=== PATIENT | female | born 2000 | race Hispanic/Latino ===

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

== ENCOUNTER 2021-07-02 13:29 | Emergency (ER) | payer SELFPAY ==
[~2021-07-02] VITALS: Ht 152.4 cm; Wt 81.6 kg
[~2021-07-02 13:29] MED LIST: IRON18 MG PO; NORTREL1 EAC2 PO; [UNRECOGNIZED DRUG - OTHER] PO
== END 2021-07-02 14:20 | disposition home or self-care (01) ==
LOC: ER 13:53
DX: N92.0 Excessive and frequent menstruation with regular cycle (principal)
CPT/HCPCS: 99282

== ENCOUNTER 2021-08-19 19:59 | Emergency (ER) | payer SELFPAY ==
[~2021-08-19] VITALS: Ht 152.4 cm; Wt 81.6 kg
[2021-08-19 20:40] LABS: BASOPHILS % 0.2 % (0.0-1.0); EOSINOPHILS # (AUTO) 0.3 (0.0-0.4); EOSINOPHILS % 1.8 % (0.0-6.0); HEMATOCRIT 34.6 % (34.2-44.1); HEMOGLOBIN 10.8 g/dL (12.0-16.0); LYMPHOCYTES # (AUTO) 2.2 (1.0-3.2); LYMPHOCYTES % 12.7 % (18.0-39.1); MEAN CORPUSCULAR HEMOGLOBIN 24.9 pg (28-32); MEAN CORPUSCULAR HGB CONC 31.2 g/dL (31-35); MEAN CORPUSCULAR VOLUME 79.9 fL (81-99); MONOCYTES % 5.7 % (4.4-11.3); NEUTROPHILS # (AUTO) 13.4 (2.1-6.9); PLATELET COUNT 470 x10e3/uL (140-360); RED BLOOD COUNT 4.33 x10e6/uL (3.6-5.1); RED CELL DISTRIBUTION WIDTH 15.3 % (11.7-14.4)
[2021-08-19] MEDS ORDERED: PIPERACILLIN/TAZOBACTAM 3.375 GM in SODIUM CHLORIDE 0.9% 50ML 50 ML IV STA (22:18)
[2021-08-19] MEDS ORDERED: ACETAMINOPHEN-1 EAC4 PO (23:21)
[2021-08-19] MEDS ORDERED: DOXYCYCLINE MO100 M1 PO (23:21)
== END 2021-08-20 00:02 | disposition home or self-care (01) ==
LOC: ER 20:16
DX: N89.8 Other specified noninflammatory disorders of vagina (principal)
CPT/HCPCS: 36415; 76830; 76856; 84702; 85025; 88305; 99284; J2543